=== PATIENT | male | born 2000 | race Caucasian/White ===

== ENCOUNTER 2020-06-13 19:31 | Emergency (ER) | payer OTHER ==
[~2020-06-13] VITALS: Ht 182.9 cm; Wt 76.2 kg
[2020-06-13] MEDS ORDERED: APAP W/CODEINE1 TA2 PO (20:20)
[2020-06-13] MEDS ORDERED: CLEOCIN HCL150 MG PO (20:20)
[2020-06-13] MEDS ORDERED: IBUPROFEN 800800 M1 PO (20:20)
[2020-06-13 20:30] VITALS: BP 120/69
== END 2020-06-13 20:30 | disposition home or self-care (01) ==
LOC: M.ERS 19:31
DX: S02.5XXA Fracture of tooth (traumatic), initial encounter for closed fracture (principal); F17.210 Nicotine dependence, cigarettes, uncomplicated; Z88.1 Allergy status to other antibiotic agents; Z88.0 Allergy status to penicillin; X58.XXXA Exposure to other specified factors, initial encounter; Y93.89 Activity, other specified; Y92.89 Other specified places as the place of occurrence of the external cause; Y99.8 Other external cause status

== ENCOUNTER 2020-12-17 21:21 | Emergency (ER) | payer OTHER ==
[~2020-12-17] VITALS: Ht 182.9 cm; Wt 65.8 kg
[~2020-12-17 21:21] MED LIST: APAP W/CODEINE1 TA2 PO; CLEOCIN HCL150 MG PO; IBUPROFEN 800800 M1 PO
[2020-12-17] MEDS ORDERED: HYDROXYZINE HCL25 M2 PO (22:45)
[2020-12-17 23:06] VITALS: BP 106/58
== END 2020-12-17 23:06 | disposition home or self-care (01) ==
LOC: M.ERS 21:21
DX: F41.9 Anxiety disorder, unspecified (principal); F17.210 Nicotine dependence, cigarettes, uncomplicated; Z88.1 Allergy status to other antibiotic agents; Z88.0 Allergy status to penicillin

== ENCOUNTER 2021-01-16 13:40 | Emergency (ER) | payer BC ==
[~2021-01-16] VITALS: Ht 182.9 cm; Wt 70.3 kg
[~2021-01-16 13:40] MED LIST changes: +HYDROXYZINE HCL25 M2 PO
[2021-01-16 13:45] VITALS: BP 137/78
== END 2021-01-16 14:35 | disposition left against medical advice (07) ==
LOC: M.ERS 13:40
DX: R11.2 Nausea with vomiting, unspecified (principal); Z53.21 Procedure and treatment not carried out due to patient leaving prior to being seen by health care provider